=== PATIENT | female | born 1995 | race African-American/Black ===

== ENCOUNTER 2017-10-06 10:45 | Emergency (ER) | payer OTHER, BC ==
[~2017-10-06] VITALS: Ht 167.6 cm; Wt 102.0 kg
[~2017-10-06 10:45] MED LIST: IBUP600 PO; OXYC1SOL5 PO; PERI8.6T PO; PRENCAP6 PO
[2017-10-06 10:47] VITALS: BP 136/74; PULSE 86; RESP 14; TEMP 98.1; O2SAT 99
[2017-10-06] MEDS ORDERED: IBUP-232 PO (11:14)
[2017-10-06] MEDS ORDERED: ROBA500T PO (11:14)
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
[2017-10-06] MEDS ORDERED: KETOROLAC TROMETHAMINE 60 MG/2 ML (IM) VIAL IM ONE (11:15)
== END 2017-10-06 12:04 | disposition home or self-care (01) ==
LOC: NEPD 10:45
DX: S29.012A Strain of muscle and tendon of back wall of thorax, initial encounter (principal); V43.52XA Car driver injured in collision with other type car in traffic accident, initial encounter
CPT/HCPCS: 96372; 99284; J1885